=== PATIENT | male | born 1955 | race Caucasian/White ===

== ENCOUNTER 2022-06-02 16:09 | Emergency (ER) | payer OTHER, SELFPAY ==
[2022-06-02 16:21] VITALS: BP 154/83; PULSE 72; RESP 18; TEMP 36.5; O2SAT 98; BMI 29.6
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
[2022-06-02] MEDS: Acetaminophen 325 MG TABLET 975 MG PO (19:38)
[2022-06-02] MEDS: Ibuprofen 400 MG TABLET PO (19:38)
[2022-06-02] MEDS: Lidocaine 4 % Patch ADH..PATCH 1 PATCH TRANSDERMA (19:39)
== END 2022-06-02 20:21 | disposition home or self-care (01) ==
PROVIDERS: Emergency Provider Student in an Organized Health Care Education/Training Program; PCP Internal Medicine
DX: Z04.1 Encounter for examination and observation following transport accident (principal); M62.838 Other muscle spasm
CPT/HCPCS: 99283

== ENCOUNTER 2024-03-15 11:52 | Outpatient (RCR) | payer OTHER, MEDICAID, SELFPAY | END 2024-04-01 11:14 | disposition home or self-care (01) | LOC: HO.PT 11:52 | PROVIDERS: PCP Hospitalist; Visit Provider Orthopaedic Surgery Foot and Ankle Surgery | DX: M54.32 Sciatica, left side (principal) | CPT/HCPCS: 97012; 97110; 97140; 97161; 97530 ==

== ENCOUNTER 2025-01-19 11:00 | Outpatient (RCR) | payer OTHER, MEDICAID, SELFPAY | END 2025-01-20 11:22 | disposition home or self-care (01) | LOC: HO.PTCHIC 11:00 | PROVIDERS: PCP Hospitalist; Visit Provider Internal Medicine | DX: M79.661 Pain in right lower leg (principal) | CPT/HCPCS: 97110; 97140; 97161 ==